=== PATIENT | male | born 1980 | race Caucasian/White ===

== ENCOUNTER 2021-03-08 17:13 | Emergency (ER) | payer OTHER, SELFPAY ==
[2021-03-08 17:23] VITALS: BP 137/92; PULSE 75; RESP 18; TEMP 36.8; O2SAT 97; BMI 30.2
[2021-03-08] MEDS: cephALEXin 250 MG CAPSULE 500 MG PO (18:38)
[2021-03-08] MEDS: TRIMETH/SULFA 160/800 (DS) TABLET 1 TAB PO (18:39)
--- NOTE | 2021-03-08 18:44 | ED_ITS ---
HPI - Skin/Abscess/Foreign Bdy <SOO Erickson - Last Filed: 03/08/21 19:21> General Chief complaint: Skin/Abscess/Foreign Body Stated complaint: INFECTED SPOTS ON ABDOMEN Time Seen by Provider: 03/08/21 18:04 Source: patient Mode of arrival: Ambulatory Limitations: no limitations History of Present Illness HPI narrative: The patient is a 40-year-old male current everyday smoker who presents with a chief complaint of infected spots on his abdomen. 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 Then he noticed that the infected spots seem to get red and spread. He has not taken anything to feel better. He denies any fevers muscle aches or chills. 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 He states that they were draining pus prior Related Data Previous Rx's Medication Instructions Recorded cephalexin 500 mg PO TID #21 cap 03/08/21 sulfamethoxazole-trimethoprim 1 tab PO BID #14 tab 03/08/21 [Bactrim DS] Allergies Allergy/AdvReac Type Severity Reaction Status Date / Time INGREDIENT: NDA - NO KNOWN Allergy Unknown Uncoded 01/22/18 12:04 DRUG ALLERGIES Review of Systems <SOO Erickson - Last Filed: 03/08/21 19:21> Review of Systems Narrative: GENERAL: Denies chills, fatigue, malaise, fever, sweats. HEENT: Denies sinus pain, ear pain, sore throat, difficulty swallowing, dizziness. RESPIRATORY: Denies dyspnea, cough, wheezing, hemoptysis, sputum. CARDIOVASCULAR: Denies chest pain, palpitations, orthopnea, edema, GASTROINTESTINAL: Denies nausea, vomiting, abdominal pain, diarrhea, constipation, melena. : Denies dysuria, frequency, incontinence, hematuria, urinary retention. MUSCULOSKELETAL: denies weakness, joint pain, or bony pain SKIN: See HPI NEUROLOGIC: Denies weakness, headache, numbness, change in speech, confusion, seizures, incoordination. PSYCHIATRIC: No concerning psychosocial issues. 12 point review of systems is negative except for those stated above Patient History <SOO Erickson - Last Filed: 03/08/21 19:21> Social History Smoking Status: Current every day smoker Smoking Status: Current every day smoker alcohol intake frequency: holidays/special occasions only Substance Use Type: former substance user Exam <SOO Erickson - Last Filed: 03/08/21 19:21> Narrative Exam Narrative: GENERAL: This is a well-nourished, well-developed patient, in no acute distress. HEAD: Atraumatic. Normocephalic. No temporal or scalp tenderness. EYES: Pupils equal round and reactive. Extraocular motions intact. No scleral icterus. No injection or drainage. ENT: Nose without bleeding, purulent drainage or septal hematoma. Wearing a mask. Airway patent. NECK: Trachea midline. No JVD or lymphadenopathy. Supple, nontender, no meningeal signs. CARDIOVASCULAR: Regular rate and rhythm RESPIRATORY: No cough. No increased respiratory effort. No accessory muscle use. GASTROINTESTINAL: Abdomen soft, non-tender, nondistended. No hepato- splenomegaly, or palpable masses. No guarding. EXTREMITIES: No clubbing, cyanosis, or edema. No joint tenderness, effusion, or edema noted. BACK: Nontender without deformity or crepitance. No flank tenderness. NEURO: AOx3. SKIN: 3 areas of erythema noted on abdomen, left most approximately 6 x 8 cm, center a 6 x 4 cm, right side approximately 1 x 1, all with small center pustules.no palpable Fluctuance or abscess. Initial Vital Signs Initial Vital Signs: Vital Signs Temperature 98.3 F 03/08/21 17:23 Pulse Rate 75 03/08/21 17:23 Respiratory Rate 18 03/08/21 17:23 Blood Pressure 137/92 H 03/08/21 17:23 Pulse Oximetry 97 03/08/21 17:23 <Tamara Garcia DO - Last Filed: 03/08/21 22:12> Initial Vital Signs Initial Vital Signs: Vital Signs Temperature 98.3 F 03/08/21 17:23 Pulse Rate 75 03/08/21 17:23 Respiratory Rate 18 03/08/21 17:23 Blood Pressure 137/92 H 03/08/21 17:23 Pulse Oximetry 97 03/08/21 17:23 Course <SOO Erickson - Last Filed: 03/08/21 19:21> Orders Ordered: Discontinued Medications Cephalexin HCl (Cephalexin 250 Mg Capsule) 500 mg PO NOW ONE Stop: 03/08/21 18:18 Last Admin: 03/08/21 18:38 Dose: 500 mg Documented by: DAYSI Trimethoprim/Sulfamethoxazole (Trimeth/Sulfa 160/800 (Ds) Tablet) 1 tab PO NOW ONE Stop: 03/08/21 18:18 Last Admin: 03/08/21 18:39 Dose: 1 tab Documented by: DAYSI Vital Signs Vital signs: Vital Signs - 8 hr 03/08/21 17:23 03/08/21 18:54 Temperature 98.3 F Pulse Rate 75 70 Respiratory Rate 18 16 Blood Pressure 137/92 H 122/72 Pulse Oximetry 97 99 <Tamara Garcia DO - Last Filed: 03/08/21 22:12> Orders Ordered: Discontinued Medications Cephalexin HCl (Cephalexin 250 Mg Capsule) 500 mg PO NOW ONE Stop: 03/08/21 18:18 Last Admin: 03/08/21 18:38 Dose: 500 mg Documented by: DAYSI Trimethoprim/Sulfamethoxazole (Trimeth/Sulfa 160/800 (Ds) Tablet) 1 tab PO NOW ONE Stop: 03/08/21 18:18 Last Admin: 03/08/21 18:39 Dose: 1 tab Documented by: DAYSI Vital Signs Vital signs: Vital Signs - 8 hr 03/08/21 17:23 03/08/21 18:54 Temperature 98.3 F Pulse Rate 75 70 Respiratory Rate 18 16 Blood Pressure 137/92 H 122/72 Pulse Oximetry 97 99 MDM - Skin/Abscess/Foreign Bdy <SOO Erickson - Last Filed: 03/08/21 19:21> MDM Narrative Medical decision making narrative: The patient is a 40-year-old male who presents with a chief complaint of infection on this abdomen. Exam is concerning for cellulitis. Will start him on Keflex and Bactrim given his history of drug use. Discussed at length monitoring for signs and symptoms of worsening infection such as fevers vomiting diarrhea etcetera encouraged him to get a primary care provider in the area contact information [facility] health natural resource specialist was given. Patient has no questions or concerns upon discharge states understanding of return precautions as well as follow-up care. Discharge Plan Departure Patient Disposition: Home Clinical Impression: Cellulitis Qualifiers: Site of cellulitis: trunk Site of cellulitis of trunk: abdominal wall Qualified Code(s): L03.311 - Cellulitis of abdominal wall Instructions: DI for Cellulitis -- Adult Activity Restrictions/Additional Instructions: Thank you for trusting us with your care today. As discussed, I sent antibiotic prescriptions to [facility] in [facility]. Please take these with probiotic or yogurt to help Prevent antibiotic related side effects As discussed, please monitor for high fevers vomiting and signs of worsening infection. I suggest keeping your skin clean and dry, do not submerge into dirty water as this can increase your chance of infection Please come back to the emergency depart for any acute concerns I have given you contact information to the [facility] natural resource specialist, who can help you identify a new primary care provider in the area Prescriptions: New cephalexin 500 mg capsule 500 mg PO TID Qty: 21 RF: 0 sulfamethoxazole-trimethoprim [Bactrim DS] 800-160 mg tablet 1 tab PO BID Qty: 14 RF: 0 Referrals: [facility] [Outside] <Tamara Garcia DO - Last Filed: 03/08/21 22:12> Cosign ED Attending Breannaature Attestation: I was immediately available in the department for consultation. Documentation has been reviewed.
[2021-03-08 18:54] VITALS: BP 122/72; PULSE 70; RESP 16; O2SAT 99
== END 2021-03-08 18:56 | disposition home or self-care (01) ==
PROVIDERS: Emergency Provider Nurse Practitioner Family
DX: L03.311 Cellulitis of abdominal wall (principal)
CPT/HCPCS: 99283